=== PATIENT | female | born 1955 | race Caucasian/White ===

== ENCOUNTER 2023-04-28 09:39 | Emergency (ER) | payer MEDICARE, SELFPAY ==
[2023-04-28 09:47] VITALS: BP 148/97; PULSE 64; RESP 16; TEMP 37.1; O2SAT 97
--- NOTE | 2023-04-28 09:55 | ED.GENADULT ---
HPI - General Adult General Chief complaint: Upper Respiratory Infection Stated complaint: Eye Problem Time Seen by Provider: 04/28/23 09:58 Source: patient, RN notes reviewed and old records reviewed Mode of arrival: ambulatory Limitations: no limitations History of Present Illness HPI narrative: 67-year-old female [facility] with complaint productive cough with congestion, fevers for over 1 week within this a.m. woke up with right eye red, irritated, crusted shut. Patient taking Coricidin HBP for symptoms. Patient took 2 home COVID tests that were negative. Patient denies shortness of breath, dizziness, chest pain, weakness, vomiting. MD complaint: eye irritation and redness Onset (ago): day(s) (1) Related Data Home Medications Medication Instructions Recorded Confirmed carvedilol 25 mg tablet 25 mg PO Q12H 07/13/22 01/18/23 esomeprazole magnesium 40 mg 40 mg PO DAILY 07/13/22 04/28/23 capsule,delayed release (Nexium) losartan 100 mg tablet 100 mg PO DAILY 07/13/22 01/18/23 magnesium hydroxide 400 mg/5 mL 5 ml PO DAILY PRN 07/13/22 01/18/23 oral suspension (Dulcolax (magnesium hydroxide)) meloxicam 7.5 mg tablet 7.5 mg PO DAILY 07/13/22 01/18/23 montelukast 10 mg tablet 10 mg PO DAILY 07/13/22 01/18/23 (Singulair) verapamil 120 mg tablet,extended 120 mg PO QPM 07/13/22 01/18/23 release paroxetine HCl 30 mg tablet 30 mg PO DAILY 04/28/23 04/28/23 Allergies Allergy/AdvReac Type Severity Reaction Status Date / Time Sutures Allergy Intermediate Rash Verified 04/28/23 10:03 Review of Systems Constitutional: Constitutional: Reports as per HPI, Reports body ache(s) and Reports fever(s) Eyes: Eyes: Reports as per HPI, Denies blurry vision, Denies change in vision, Reports eye discharge, Reports irritation, Reports itchy eyes and Denies eye pain ENT: Reports as per HPI, Reports nasal congestion and Reports nasal discharge Cardiovascular: Cardiovascular: Reports no additional cardiovascular complaints Respiratory: Respiratory: Reports as per HPI, Reports change in phlegm color, Reports chest congestion, Reports cough, Denies pain with cough and Denies dyspnea Neurologic: Reports system reviewed and no additional complaints, except as documented PMFSH Past Medical History Medical History CKD (chronic kidney disease) DJD (degenerative joint disease) GERD (gastroesophageal reflux disease) Hyperlipidemia Hypertension Hypomagnesemia Insomnia Restless leg syndrome Family History Family History Mother Hypertension Alzheimers disease Father Heart disease Sibling Nephrolithiasis Social History Social History Smoking status: Never smoker Alcohol intake: never Substance use: never Lack of Transportation: No Lack of Food: Never True Current Housing: I Have Housing Concerned About Future Housing: No Difficulty Paying Gas/Electric Bills: No Difficulty Paying for Meds: No Currently Unemployed: No Education: High School Diploma/GED Difficulty w/ Childcare or Family Care: No Living arrangements: with family Gender identity (if verbalized by the patient): Female Sexual Orientation (if Verbalized by the Patient): Straight or Heterosexual Comments At the time of my signature, I reviewed and agree with the nursing past medical, surgical, social, and family history. There is no relevant family history pertinent to the patient complaint. Exam Const: General: cooperative, healthy appearing, no acute distress and well nourished Nutritional Appearance: well nourished Orientation/consciousness: patient oriented x3 Limitations: no limitations HENMT: Head: normal to inspection and normocephalic Ears: external ears normal, TM's normal bilaterally, mastoids normal and Abnormal EAC present Face/Nose/
== END 2023-04-28 10:13 | disposition home or self-care (01) ==
PROVIDERS: Emergency Provider Registered Nurse
DX: J20.9 Acute bronchitis, unspecified (principal); H10.31 Unspecified acute conjunctivitis, right eye; K21.9 Gastro-esophageal reflux disease without esophagitis; I12.9 Hypertensive chronic kidney disease with stage 1 through stage 4 chronic kidney disease, or unspecified chronic kidney disease; N18.9 Chronic kidney disease, unspecified; E78.5 Hyperlipidemia, unspecified; G25.81 Restless legs syndrome
CPT/HCPCS: 99213; G0463

== ENCOUNTER 2023-07-07 11:10 | Emergency (ER) | payer MEDICARE, SELFPAY ==
[2023-07-07 11:46] VITALS: BP 129/58; PULSE 68; RESP 18; TEMP 36.6; O2SAT 100
--- NOTE | 2023-07-07 11:51 | ED.GENADULT ---
HPI - General Adult General Chief complaint: Upper Respiratory Infection Stated complaint: Sore Throat/Ear Pain Source: patient, RN notes reviewed and old records reviewed Mode of arrival: ambulatory Limitations: no limitations History of Present Illness HPI narrative: A 60-year-old female presents to [facility] with complaint of cough, congestion, sore throat, shortness of breath that started 3 days ago. Patient states is worried because granddaughter is positive for strep throat. Patient states shortness of breath has been going on for several weeks and patient has seen her PCP about it already being evaluated. Related Data Home Medications Medication Instructions Recorded Confirmed carvedilol 25 mg tablet 25 mg PO Q12H 07/13/22 07/07/23 esomeprazole magnesium 40 mg 40 mg PO DAILY 07/13/22 07/07/23 capsule,delayed release (Nexium) losartan 100 mg tablet 100 mg PO DAILY 07/13/22 07/07/23 meloxicam 7.5 mg tablet 7.5 mg PO DAILY 07/13/22 07/07/23 montelukast 10 mg tablet 10 mg PO DAILY 07/13/22 07/07/23 (Singulair) verapamil 120 mg tablet,extended 120 mg PO QPM 07/13/22 07/07/23 release ascorbate calcium (vitamin C) 500 500 mg PO DAILY 04/28/23 07/07/23 mg tablet azelastine 205.5 mcg (0.15 %) 1 spray intranasal BID 04/28/23 07/07/23 nasal spray cholecalciferol (vitamin D3) 25 25 mcg PO DAILY 04/28/23 07/07/23 mcg (1,000 unit) tablet (Vitamin D3) magnesium oxide 400 mg (241.3 mg 800 mg PO BID 04/28/23 07/07/23 magnesium) tablet mecobalamin (vitamin B12) 500 mcg 500 mcg PO BID 04/28/23 07/07/23 chewable tablet paroxetine HCl 30 mg tablet 30 mg PO DAILY 04/28/23 07/07/23 Allergies Allergy/AdvReac Type Severity Reaction Status Date / Time Sutures Allergy Intermediate Rash Verified 07/07/23 11:55 hydrocodone AdvReac Intermediate Nausea and Verified 07/07/23 11:55 Vomiting Review of Systems Constitutional: Constitutional: Reports no additional constitutional complaints, Denies body ache(s), Denies chills, Denies fatigue, Denies fever(s) and Denies headache(s) Eyes: Eyes: Reports no additional eye complaints and Denies blurry vision ENT: Reports system reviewed and no additional complaints, except as documented, Denies vertigo, Denies dizziness, Denies ear discharge, Reports otalgia, Denies facial pain, Denies headache(s), Reports nasal congestion, Reports nasal discharge, Denies sinus pain, Reports sinus pressure and Reports sore throat Cardiovascular: Cardiovascular: Reports no additional cardiovascular complaints, Denies chest pain, Denies chest pain at rest, Denies rapid heart rate and Denies dyspnea Respiratory: Respiratory: Reports no additional respiratory complaints, Denies chest congestion, Reports cough, Denies pain on inspiration, Denies pain with cough and Reports dyspnea Gastrointestinal: Gastrointestinal: Denies abdominal pain, Denies diarrhea, Denies nausea and Denies vomiting Integumentary/Breasts: Skin/Breast: Denies rash Neurologic: Reports system reviewed and no additional complaints, except as documented, Denies vertigo, Denies dizziness and Denies headache(s) Endocrine: Endocrine: Denies fatigue PMFSH Past Medical History Medical History CKD (chronic kidney disease) DJD (degenerative joint disease) GERD (gastroesophageal reflux disease) Hyperlipidemia Hypertension Hypomagnesemia Insomnia Restless leg syndrome Family History Family History Mother Hypertension Alzheimers disease Father Heart disease Sibling Nephrolithiasis Social History Social History Smoking status: Never smoker Alcohol intake: never Substance use: never Do You Feel Safe in your Home?: Yes Lack of Transportation: No Lack of Food: Never True Current Housing: I Have Housing Concerned About Future Housing
== END 2023-07-07 11:57 | disposition home or self-care (01) ==
PROVIDERS: Emergency Provider Registered Nurse
DX: B34.9 Viral infection, unspecified (principal); I12.9 Hypertensive chronic kidney disease with stage 1 through stage 4 chronic kidney disease, or unspecified chronic kidney disease; N18.9 Chronic kidney disease, unspecified; K21.9 Gastro-esophageal reflux disease without esophagitis; E78.5 Hyperlipidemia, unspecified; G25.81 Restless legs syndrome
CPT/HCPCS: 87081; 87880; 99213; G0463

== ENCOUNTER 2025-04-28 10:06 | Outpatient (CLI) | payer MEDICARE, SELFPAY ==
[2025-04-28 19:17] LABS: Albumin Level 4.2 g/dL (3.5-5.1); Anion Gap 6 mmol/L (4-12); Blood Urea Nitrogen 23 mg/dL (7-17); Calcium 9.6 mg/dL (8.4-10.2); Carbon Dioxide 25 mmol/L (22-30); Chloride 100 mmol/L (98-107); Estimated Glomerular Filt Rate 32; Glucose 139 mg/dL (65-110); Potassium 4.3 mmol/L (3.4-5.0); Sodium 131 mmol/L (137-145)
== END 2025-04-28 10:07 | disposition home or self-care (01) ==
PROVIDERS: PCP Physician Assistant; Visit Provider Internal Medicine Nephrology
DX: N18.32 Chronic kidney disease, stage 3b (principal)
CPT/HCPCS: 36415; 80069